=== PATIENT | male | born 1965 | race Caucasian/White ===

== ENCOUNTER 2017-03-15 10:15 | Day surgery (SDC) | payer OTHER ==
[~2017-03-15 10:15] MED LIST: PROPOFOL INJ 200 MG/20 ML VIAL IV ONE
[2017-03-15 13:16] VITALS: BP 104/71
--- NOTE | 2017-03-15 14:07 | Operative Report ---
Operative Report DATE OF SURGERY: 03/15/17 Operative Report: The risks, benefits and alternatives of the procedure including risks of bleeding, perforation requiring surgery are explained to the patient in detail and informed consent was obtained. Patient was taken to the endoscopy suite and placed in the left, lateral decubital position. Timeout was called. Propofol medications administered. A rectal examination was done which did not reveal any masses, tears or fissures. An Olympus videoscope was inserted into the patient's rectum. The scope was then carefully advanced all the way to the cecum. The cecum was identified by the usual anatomical landmarks including the ileocecal valve as well as the appendiceal office. Photodocumentation is obtained. The scope was then sequentially pulled back via the various segments of the colon including the ascending colon, hepatic flexure, transverse colon, splenic flexure, descending colon and finding to the rectosigmoid portions of the colon. Retroflexion maneuvers performed. Prep is good. PREOPERATIVE DIAGNOSIS: Change of bowel habits. Personal history of polyps. Dyspepsia POSTOPERATIVE DIAGNOSIS: Terminal ileitis status post biopsy. Random biopsies taken to rule out for collagenous colitis. Esophagitis, biopsies obtained to rule out Roy's. Gastritis status post biopsy rule out Helicobacter pylori. Duodenitis status post biopsy rule out celiac disease OPERATION: Colonoscopy with biopsy. EGD with biopsy SURGEON: RAUL PRECIADO ANESTHESIA: LMAC TISSUE REMOVED OR ALTERED: As described above. COMPLICATIONS: None. ESTIMATED BLOOD LOSS: None. INTRAOPERATIVE FINDINGS: As described above. PROCEDURE: Patient tolerated procedure well. No immediate postprocedure complications are noted. Patient discharged in good condition. Discharge date 03/15/2017. Discharge diet: Regular. Discharge activity: Regular. 2-3 week follow-up to discuss findings. Patient is instructed to call the office or proceed to the emergency room should there be any further problems or questions. 10 year surveillance colonoscopy. We will wait on pathology.
== END 2017-03-15 13:00 | disposition home or self-care (01) ==
LOC: END 10:15
PROVIDERS: ATTEND Internal Medicine Gastroenterology
PROC: 0DB58ZX Excision of Esophagus, Via Natural or Artificial Opening Endoscopic, Diagnostic (ICD-10-PCS; 2017-03-15)
PROC: 0DBB8ZX Excision of Ileum, Via Natural or Artificial Opening Endoscopic, Diagnostic (ICD-10-PCS; 2017-03-15)
PROC: 0DBF8ZX Excision of Right Large Intestine, Via Natural or Artificial Opening Endoscopic, Diagnostic (ICD-10-PCS; 2017-03-15)
PROC: 0DB98ZX Excision of Duodenum, Via Natural or Artificial Opening Endoscopic, Diagnostic (ICD-10-PCS; principal; 2017-03-15 12:30)
PROC: 0DB68ZX Excision of Stomach, Via Natural or Artificial Opening Endoscopic, Diagnostic (ICD-10-PCS; 2017-03-15 12:30)
DX: K22.70 Barrett's esophagus without dysplasia (principal); K29.50 Unspecified chronic gastritis without bleeding; K29.80 Duodenitis without bleeding; K52.9 Noninfective gastroenteritis and colitis, unspecified; K21.9 Gastro-esophageal reflux disease without esophagitis; F41.9 Anxiety disorder, unspecified; Z86.010 Personal history of colon polyps; Z79.899 Other long term (current) drug therapy; Z88.0 Allergy status to penicillin
CPT/HCPCS: 43239; 45380; 88342 ×2; 88305 ×2; J2704; 740

== ENCOUNTER 2017-08-16 07:28 | Day surgery (SDC) | payer OTHER ==
[2017-08-16] MEDS ORDERED: PROPOFOL INJ 200 MG/20 ML VIAL IV ONE (09:07)
[2017-08-16 09:42] VITALS: BP 121/75
--- NOTE | 2017-08-16 12:28 | Operative Report ---
Operative Report DATE OF SURGERY: 08/16/17 Operative Report: The risks benefits and alternatives of the procedure explained to the patient in detail and informed consent is obtained.A GIF Olympus video scope was inserted into the patient's mouth and hypopharynx, the esophagus is identified intubated and insufflated, the scope was then advanced through the esophagus stomach and duodenum, retroflexion maneuver is done, the esophagus stomach and first and second portions of the duodenum examined PREOPERATIVE DIAGNOSIS: Personal history of Roy's esophagus POSTOPERATIVE DIAGNOSIS: Roy's esophagus noted status post ablation. Gastritis status post biopsy rule out Helicobacter pylori OPERATION: EGD plus ablation SURGEON: RAUL PRECIADO ANESTHESIA: LMAC TISSUE REMOVED OR ALTERED: As noted above. COMPLICATIONS: None. ESTIMATED BLOOD LOSS: None. INTRAOPERATIVE FINDINGS: As described above. PROCEDURE: Patient tolerated procedure well. No immediate postprocedure complications are noted. Patient discharged in good condition. Discharge date 08/16/2017. Discharge diet: Regular. Discharge activity: Regular. 2-3 week follow-up to discuss findings. 3 months surveillance EGD with repeat ablation if needed. Patient is instructed to call the office or proceed to the emergency room should there be any further problems or questions.
== END 2017-08-16 09:40 | disposition home or self-care (01) ==
LOC: END 07:28
PROVIDERS: ATTEND Internal Medicine Gastroenterology
PROC: 0DB68ZX Excision of Stomach, Via Natural or Artificial Opening Endoscopic, Diagnostic (ICD-10-PCS; principal; 2017-08-16 08:30)
PROC: 0D558ZZ Destruction of Esophagus, Via Natural or Artificial Opening Endoscopic (ICD-10-PCS; 2017-08-16 08:30)
DX: K22.719 Barrett's esophagus with dysplasia, unspecified (principal); K29.70 Gastritis, unspecified, without bleeding; K21.9 Gastro-esophageal reflux disease without esophagitis; Z87.891 Personal history of nicotine dependence; Z88.0 Allergy status to penicillin
CPT/HCPCS: 43270; 43239; 88305 ×2; J2704; 731

== ENCOUNTER → 2017-09-16 | Outpatient (CLI) | payer OTHER ==
[2017-09-17 13:38] LABS: ANTICHROMATIN AB 0.2 AI (0.0-0.9); CENTROMERE B AB 1.1 AI (0.0-0.9); JO-1 ANTIBODY (ANACOMP) <0.2 AI (0.0-0.9); RNP AB <0.2 AI (0.0-0.9); SCLERODERMA-70 ANTIBODIES <0.2 AI (0.0-0.9); SJOGREN'S ANTI-SS-B AB <0.2 AI (0.0-0.9); SJOGREN'S SS-A ANTIBODY 0.2 AI (0.0-0.9); SMITH AB ANA <0.2 AI (0.0-0.9)
[2017-09-17 14:41] LABS: DNA DOUBLE STRAND ANTIBODY ANA 8 IU/mL (0-9)
[2017-09-17 15:38] LABS: CYTOPLASMIC (C-ANCA) <1:20 titer (Neg:<1:20)
[2017-09-17 16:17] LABS: ATYPICAL PANCA <1:20 titer (Neg:<1:20); PERINUCLEAR (P-ANCA) <1:20 titer (Neg:<1:20)
[2017-09-18 13:19] LABS: ACTIN (SMOOTH MUSCLE) ANTIBODY 33 Units (0-19)
== END ==
LOC: OD 08:35
PROVIDERS: ATTEND Internal Medicine Pulmonary Disease
DX: I73.00 Raynaud's syndrome without gangrene (principal); R94.2 Abnormal results of pulmonary function studies
CPT/HCPCS: 36415; 86021; 86225; 86235

== ENCOUNTER → 2018-01-11 | Outpatient (CLI) | payer OTHER ==
--- NOTE | 2018-01-11 09:11 | RADIOLOGY REPORT (SQ) ---
EXAM DESCRIPTION: COOKIE SWALLOW COMPLETED DATE/TIME: 01/11/2018 8:35 am REASON FOR STUDY: TERRAZAS'S ESOPHAGUS W/O DYSPLASIA (K22.70) K22.70 TERRAZAS'S ESOPHAGUS WITHOUT DYS PLASIA COMPARISON: None. TECHNIQUE: Videofluoroscopic swallowing examination was performed in conjunction with speech patholo gy. Videofluoroscopic imaging was obtained and reviewed and these are the findings: RADIATION DOSE: Fluoro time 1.0 minutes 1 images saved to PACS. LIMITATIONS: None FINDINGS: The patient was brought into the fluoro room and placed upright on a modified barium swall ow chair. The patient was then given multiple consistencies mixed with barium to swallow under live fluoroscopic video guidance. According to the Speech Pathologist there was no penetration or aspirat ion. Please refer to the speech pathology report for further details. IMPRESSION: NO EVIDENCE OF PENETRATION OR ASPIRATIONPLEASE SEE SPEECH PATHOLOGIST REPORT FOR OTHER F INDINGS AND RECOMMENDATIONS. COMMENT: None Quality ID [id number]: Final reports for procedures using fluoroscopy that document radiation exposure rhiannon vi, or exposure time and number of fluorographic images (if radiation exposure indices are not avail able) TECHNICAL DOCUMENTATION: JOB ID: [id number] [employer]- All Rights Reserved Reading location - IP/workstation name: [facility]
--- NOTE | 2018-01-11 11:30 | ST Modified Barium Swallow ---
Recommendation - Recommendations Recommendations: Recommend patient follow up with pricing director. Reflux precautions taught; no other swallowing recommendations. Medical Diagnoses - Medical Diagnoses Medical Diagnosis Description & ICD-10 Code(s): Barrets esophagus K22.7, dysphagia R13.10 Other Medical Diagnoses/Co-Morbidities: Per patient report, potential scleroderma, and reduced lung capacity. ST Modified Barium Swallow - General Date: 01/11/18 Referring Physician: Dr. Calvo Risks/Precautions: None Date of Onset: 01/11/18 - Patient did not report onset date Reason for Referral: Globus - History History obtained from: Patient -: Medical - Patient reports history of reflux, Barrets esophagus, reduced lung capacity and potential scleroderma. Patient reports no discomfort or difficulty with swallowing other than esophageal concerns. Medications: Per patient reprot: zantac, testosterone cream Allergies: Per patient report: penecilin, wheat/gluten sensitivity - Functional Status Prior Functional Status: INDEPENDENT: feeding - Independent Current Functional Limitations: feeding - Independent - Subjective Patient/caregiver goal(s): safe swallow Cognitive-Linguistic Function: WNL Speech Intelligibility: WNL Current Nutritional Means: PO Current PO diet: Regular Current symptoms: c/o Globus sensation - Patient indicated globus sensation in the sternal region Pain: Patient reports, denies pain - Objective Assessment: Upright, Left Lateral - Food Trials Used Food trials used: Thin liquids, Pureed, Regular The patient: Was Able to Self Feed, via cup, via spoon - Oral-Motor Skills Dentition: Full Velo-pharyngeal function: Unremarkable - Assessment Oral prep: Normal Labial closure: Adequate Leakage: None Mastication: Adequate Lingual Movement: Normal Oral stage: Normal for this Procedure - Pharyngeal Stage Initiation of Pharyngeal Stage Reflex: Normal Decreased laryngeal elevation: No Reduced Velopharyngeal Closure: no Reduced pressure generation: No reduced tongue-based retraction: No Pre-swallow pooling in valleculae: None Pre-Swallow pooling in pyriforms: None Reduced Thyro-Hyoid approximation: No Reduced epiglottic excursion: No Reduced pharyngeal peristalsis/contraction: No Post-swallow residulas vallecular: None Post-Swallow residuals in pyriforms: None Post-Swallow Residuals: no residuals Reduced Cricopharyngeal opening: No - Fall Risk Assessment Medications/Conditions that increase fall risks include: Antidepressants, sedatives, anti-arrhythmic, diuretic, benzodiazipenes, neuroleptics. BP regulation problems, cardiac problems, balance or gait deficits, neurological problems. Fall Risk Actions Taken: No action needed - Behavioral Observations During evaluation process patient: was pleasant, was cooperative, able to answer questions, provided medical history - Treatment / Educational Needs: Treatment/Education Needs: Treatment consisted of patient education on the role of the Speech Pathologist. Patient's plan of care and golas were communicated as well as scheduling and attendance policies. Recommendations for initial home program were shared. Patient demonstrated understanding and verbalized agreement. - Impression/Summary Laryngeal Penetration: No Tracheal Aspiration: no Patient presents with: Normal swallow at eval Risk of Aspiration: Minimal Risk of nutritional compromise: None Evaluation and Findings: Clinician presented po trials of thin, pureed and regular consistencies. No aspiration noted; adequate hyolaryngeal excursion, and epiglottic inversion. No residuals noted. Functional swallow seen on all trials. - Recommendations Pt/Family education and followup with MD: Yes Dysphagia therapy with BUILDING CONSTRUCTION FOREMAN: no Reflux Precautions: Taught to Patient Information, Precautions and Recommendations: Patient (Written), Patient (Verbal ) - Time Total Time: 20 - Plan of Care Strategies to optimize patient understanding include:: ongoing assessment of educational needs, implementation of educational strategies, and re-education. - - -: Thank you for the opportunity to work with this patient and his/her family. Should you have any questions about this patient's plan or progress, I can be reached at [phone]. Charge G Code? - - -: No
== END ==
LOC: RAD 07:52
PROVIDERS: ATTEND Internal Medicine Pulmonary Disease
DX: K22.70 Barrett's esophagus without dysplasia (principal)
CPT/HCPCS: 74230